=== PATIENT | male | born 1995 | race Two or more races ===

== ENCOUNTER 2020-11-02 21:06 | Emergency (ER) | payer SELFPAY ==
[~2020-11-02] VITALS: Ht 190.5 cm; Wt 100.0 kg
[2020-11-03 00:48] LABS: COVID AG,FIA SOURCE NASOPHARYNGEAL
[2020-11-03 01:45] VITALS: BP 127/78
[2020-11-03 02:08] LABS: INFLUENZA TYPE A NEGATIVE FOR TYPE A (NEGATIVE); INFLUENZA TYPE B NEGATIVE FOR TYPE B (NEGATIVE)
== END 2020-11-03 01:45 | disposition home or self-care (01) ==
LOC: EMS 21:06
DX: J06.9 Acute upper respiratory infection, unspecified (principal); Z20.822 Contact with and (suspected) exposure to COVID-19
CPT/HCPCS: 87426; 87804; 99283; U0003